=== PATIENT | male | born 1960 | race Caucasian/White ===

== ENCOUNTER 2017-03-17 03:47 | Observation (INO) | payer BC, OTHER ==
[~2017-03-17] VITALS: Ht 180.3 cm; Wt 113.0 kg
[~2017-03-17 03:47] MED LIST: AMLO-114 PO; CALC500C70 PO; LOSA1TAB38 PO; NSNN50; SIMV1POW PO
[2017-03-17] MEDS ORDERED: ONDANSETRON INJ 2 MG/ML 2 ML VIAL IV STA (03:55)
[2017-03-17] MEDS ORDERED: KETOROLAC TROMETHAMINE 30 MG/ML VIAL IV STA (03:55)
[2017-03-17] MEDS ORDERED: MoRPHine SULFATE 4 MG/ML 1 ML CARP\\VIAL IV STA (03:55)
--- NOTE | 2017-03-17 03:58 | EMERGENCY ROOM VISIT NOTE ---
History Report prepared by Gemmaibprem: Bradley Kim Under the Supervision of: Dr. Justus Soares D.O. First contact with patient: 03:49 Chief Complaint: BACK PAIN Stated Complaint: MUSCLE SPASMS IN BACK History of Present Illness The patient is a 56 year old male who presents to the Emergency Room with complaints of worsening and severe back pains that began 3 days prior to arrival. The patient's pain is worsened with movement and range of motion. He denies any recent trauma that could have caused his current symptoms. Source of History: patient Onset: 3 days [employer]ITIONER Position: back (lower) Symptom Intensity: severe Modifying Factors (Worsening): movement, other (ROM) Review of Systems See HPI for pertinent positives and negatives. A total of ten systems were reviewed and were otherwise negative. Past Medical & Surgical Medical Problems: (1) Leukocytosis Social History Smoking Status: Current Some Day Smoker Drug Use: none Marital Status: Housing Status: lives with significant other Current/Historical Medications Scheduled Amlodipine (Norvasc), 10 MG PO DAILY Fluticasone Propionate (Fluticasone Propionate), 2 SPRAYS THANH DAILY Losartan Potassium (Cozaar), 100 MG PO DAILY Metformin Hcl Er (Glucophage Er), 500 MG PO DAILY Simvastatin (Zocor), 40 MG PO QPM Allergies Coded Allergies: No Known Allergies (Verified , 03/17/17) Physical Exam Vital Signs Date Time Temp Pulse Resp B/P Pulse Ox O2 Delivery O2 Flow Rate FiO2 03/17/17 04:14 Room Air 03/17/17 04:14 Room Air 03/17/17 04:14 37.2 98 18 162/101 98 Room Air Physical Exam GENERAL: Awake, alert, well-appearing, in no distress HENT: Normocephalic, atraumatic. Oropharynx unremarkable. EYES: Normal conjunctiva. Sclera non-icteric. NECK: Supple. No nuchal rigidity. FROM. No JVD. RESPIRATORY: Clear to auscultation. CARDIAC: Regular rate, normal rhythm. Extremities warm and well perfused. Pulses equal. ABDOMEN: Soft, non-distended. No tenderness to palpation. No rebound or guarding. No masses. BACK: There is severe spasm and tenderness from T6 to the lower sacral region. RECTAL: Deferred. MUSCULOSKELETAL: Chest examination reveals no tenderness. The back is symmetrical on inspection without obvious abnormality. There is no CVA tenderness to palpation. No joint edema. LOWER EXTREMITIES: Calves are equal size bilaterally and non-tender. No edema. No discoloration. NEURO: Normal sensorium. No sensory or motor deficits noted. SKIN: No rash or jaundice noted. Medical Decision & Procedures ER Provider Diagnostic Interpretation: X ray results as stated below per my interpretation and radiologist interpretation. Other radiology results as stated below per my review and radiologist interpretation CT ABDOMEN & PELVIS: Suspect atelectasis and/or scarring lung bases. Correlate for mild infiltrate. Some lung base opacity has a somewhat wedge-shaped configuration and is pleural- based, example right lung base. Infarction can have this appearance, though exam is not diagnostic for this. Cannot exclude PE without contrast. Hiatal hernia. Findings compatible interval partial left nephrectomy. NO urolithiasis or hydronephrosis. Nonspecific perinephric infiltration. No bowel obstruction. No evidence for appendicitis. No diverticulitis or colitis appreciated. Moderate colonic stool. Stable left lower lobe nodule and other incidental findings. Radiologist: Kelby Thompson M.D. Laboratory Results 03/17/17 04:01 Red Blood Count 5.66, Mean Corpuscular Volume 88.2, Mean Corpuscular Hemoglobin 31.8, Mean Corpuscular Hemoglobin Concent 36.1, Mean Platelet Volume 9.6, Neutrophils (%) (Auto) 67.2, Lymphocytes (%) (Auto) 19.5, Monocytes (%) (Auto) 8.8, Eosinophils (%) (Auto) 3.3, Basophils (%) (Auto) 0.3, Neutrophils # (Auto) 7.01, Lymphocytes # (Auto) 2.03, Monocytes # (Auto) 0.92, Eosinophils # (Auto) 0.34, Basophils # (Auto) 0.03 03/17/17 04:01 Test 03/17/17 04:01 03/17/17 05:45 White Blood Count 10.42 K/uL (4.8-10.8) Red Blood Count 5.66 M/uL (4.7-6.1) Hemoglobin 18.0 g/dL (14.0-18.0) Hematocrit 49.9 % (42-52) Mean Corpuscular Volume 88.2 fL (80-100) Mean Corpuscular Hemoglobin 31.8 pg (25-34) Mean Corpuscular Hemoglobin Concent 36.1 g/dl (32-36) Platelet Count 188 K/uL (130-400) Mean Platelet Volume 9.6 fL (7.4-10.4) Neutrophils (%) (Auto) 67.2 % Lymphocytes (%) (Auto) 19.5 % Monocytes (%) (Auto) 8.8 % Eosinophils (%) (Auto) 3.3 % Basophils (%) (Auto) 0.3 % Neutrophils # (Auto) 7.01 K/uL (1.4-6.5) Lymphocytes # (Auto) 2.03 K/uL (1.2-3.4) Monocytes # (Auto) 0.92 K/uL (0.11-0.59) Eosinophils # (Auto) 0.34 K/uL (0-0.5) Basophils # (Auto) 0.03 K/uL (0-0.2) RDW Standard Deviation 40.3 fL (36.4-46.3) RDW Coefficient of Variation 12.5 % (11.5-14.5) Immature Granulocyte % (Auto) 0.9 % Immature Granulocyte # (Auto) 0.09 K/uL (0.00-0.02) Anion Gap 7.0 mmol/L (3-11) Est Creatinine Clear Calc Drug Dose 110.7 ml/min Estimated GFR () 104.5 Estimated GFR (Non- 90.2 BUN/Creatinine Ratio 17.9 (10-20) Calcium Level 9.1 mg/dl (8.5-10.1) Total Bilirubin 0.7 mg/dl (0.2-1) Direct Bilirubin 0.2 mg/dl (0-0.2) Aspartate Amino Transf (AST/SGOT) 20 U/L (15-37) Alanine Aminotransferase (ALT/SGPT) 47 U/L (12-78) Alkaline Phosphatase 75 U/L (45-117) Total Protein 7.6 gm/dl (6.4-8.2) Albumin 4.1 gm/dl (3.4-5.0) Laboratory results reviewed by me Medications Administered Medications (Trade) Dose Ordered Sig/Vignesh Route Start Time Stop Time Status Last Admin Dose Admin Dexamethasone Sodium Phosphate (Decadron Inj) 10 mg NOW ONCE IV 03/17/17 04:00 03/17/17 04:01 DC 03/17/17 04:07 10 MG Morphine Sulfate (MoRPHine SULFATE INJ) 4 mg NOW STAT IV 03/17/17 03:55 03/17/17 03:56 DC 03/17/17 04:07 4 MG Ondansetron HCl (Zofran Inj) 4 mg NOW STAT IV 03/17/17 03:55 03/17/17 03:56 DC 03/17/17 04:07 4 MG Ketorolac Tromethamine 30 mg 30 mg NOW STAT IV 03/17/17 03:55 03/17/17 03:56 DC 03/17/17 04:07 30 MG Sodium Chloride (Nss 1000ml) 1,000 ml @ 999 mls/hr Q1H1M STAT IV 03/17/17 04:09 03/17/17 05:09 DC 03/17/17 04:09 999 MLS/HR Hydromorphone HCl (Dilaudid Inj) 1 mg NOW STAT IV 03/17/17 05:31 03/17/17 05:32 DC 03/17/17 05:43 1 MG ED Course 0351: The patient was evaluated in room B6. A complete history and physical exam was performed. 0355: Ordered Toradol 30 mg IV, Zofran 4 mg IV, Morphine Sulfate 4 mg IV. 0400: Ordered Decadron 10 mg IV. 0409: Ordered Sodium Chloride 1000 mL @ 999 mL/hr IV. 0531: Ordered Dilaudid 1 mg IV. 0538: I discussed the case with Dr. Chappell Resident for Dr. Manisha CARO Hospitalist, she will evaluate the patient for further treatment. Patient's exam does not suggest cauda equina syndrome. Patient clearly has back spasms is able lift his legs there is no bowel or bladder dysfunction. I have discussed the evaluation with the patient patient's at bedside as well as the hospitalist for admission Medical Decision Differential diagnosis includes: Muscle strain, muscle sprain, contusion, muscle spasm, dehydration. Consults Time Called: 529 Consulting Physician: Dr. Chappell Resident for Dr. Manisha CARO Hospitalist Returned Call: 05 I discussed the case with Dr. Chappell Resident for Dr. Manisha CARO Hospitalist, she will evaluate the patient for further treatment. Impression Primary Impression: Intractable low back pain Scribe Attestation The scribe's documentation has been prepared under my direction and personally reviewed by me in its entirety. I confirm that the note above accurately reflects all work, treatment, procedures, and medical decision making performed by me. Departure Information Dispostion Being Evaluated By Hospitalist Referrals Filiberto Romeo M.D. (PCP) Patient Instructions My [facility]
[2017-03-17] MEDS ORDERED: DEXAMETHASONE SOD INJ 10 MG/ML VIAL IV ONE (04:00)
[2017-03-17 04:09] LABS: BASO % 0.3 %; BASO ABS # 0.03 K/uL (0-0.2); COMPLETE YES; EOS % 3.3 %; HEMATOCRIT 49.9 % (42-52); IG% 0.9 %; LYMPH % 19.5 %; LYMPH ABS # 2.03 K/uL (1.2-3.4); MEAN CELL VOLUME 88.2 fL (80-100); MEAN CORPUSCULAR HEMOGLOBIN 31.8 pg (25-34); MEAN CORPUSCULAR HGB CONC 36.1 g/dl (32-36); MEAN PLATELET VOLUME 9.6 fL (7.4-10.4); MONO % 8.8 %; NEUT % 67.2 %; PLATELET COUNT 188 K/uL (130-400); RED BLOOD COUNT 5.66 M/uL (4.7-6.1); WHITE BLOOD COUNT 10.42 K/uL (4.8-10.8)
[2017-03-17] MEDS ORDERED: SODIUM CHLORIDE 0.9% 1000ML 1,000 ML IV STA (04:09)
[2017-03-17 04:28] LABS: BUN/CREATININE RATIO 17.9 (10-20); CALCIUM 9.1 mg/dl (8.5-10.1); CREATININE 0.93 mg/dl (0.60-1.40); POTASSIUM 4.2 mmol/L (3.5-5.1)
[2017-03-17] MEDS ORDERED: SIMV40TA2 PO (04:41)
[2017-03-17] MEDS ORDERED: FLNIN/ NAE (04:41)
[2017-03-17] MEDS ORDERED: METF500T5 PO (04:41)
[2017-03-17] MEDS ORDERED: HYDROmorphone INJ 1 MG/ML SYR IV STA (05:31)
[2017-03-17 06:05] LABS: URINE APPEARANCE CLEAR (CLEAR); URINE BILIRUBIN NEG (NEG); URINE COLOR YELLOW; URINE NITRITE NEG (NEG); URINE SPECIFIC GRAVITY 1.012 (1.000-1.030); UROBILINOGEN NEG (NEG)
[2017-03-17 06:06] LABS: MANUAL MICROSCOPIC REQUIRED? NO; REVIEW REQ? NO
[2017-03-17] MEDS ORDERED: OPTIRAY 320 IV PRN (06:15)
[2017-03-17] MEDS ORDERED: ONDANSETRON INJ 2 MG/ML 2 ML VIAL IV PRN (06:15)
--- NOTE | 2017-03-17 06:41 | History and Physical ---
History & Physical Date & Time of Service: March 17, 2017 at 06:26 Chief Complaint: Muscle Spasms In Back Primary Care Physician: Filiberto Romeo M.D. History of Present Illness Source: patient, family This is a 56 yo m s/p partial left nephrectomy for RCC that is presenting to us with back spasms/ intractable back pain. The patient had originally suffered from these back spasms approx three days ago after doing yard work outside and then while sitting down he "triggered spams". It was self limiting and lasted about an hour. He has had only had "twinges" of pain since. 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 It is a "spasm like" pain and it is a 10/10 with any movement and has a 1/10 pain if he just lays on the bed. It is particularly on the right side and radiates to the left and right flank but not down the legs. He denies any numbness/ tingling/ weakness in the LE. He denies any bowel/ bladder incontinence. He had a left partial nephrectomy in Sep 2010 at [place] for RCC. A Ct scan of the abd was done and the Stat read mentioned that there was a wedge shaped configuration concerning for a pulmonary infarction Past Medical/Surgical History Medical Problems: (1) Leukocytosis Status: Chronic Family History FH: heart disease Hypertension Social History Smoking Status: Light Tobacco Smoker Smokeless Tobacco Use: No Alcohol Use: none Drug Use: none Marital Status: Housing status: lives with family Occupational Status: employed Immunizations History of Influenza Vaccine: No History of Tetanus Vaccine?: Yes History of Pneumococcal: No History of Hepatitis B Vaccine: No Multi-Drug Resistant Organisms History of MDRO: No Allergies Coded Allergies: No Known Allergies (Verified , 03/17/17) Home Medications Scheduled Amlodipine (Norvasc), 10 MG PO DAILY Baclofen (Baclofen), 10 MG PO BID Fluticasone Propionate (Fluticasone Propionate), 2 SPRAYS THANH DAILY Hydrocodone/Acetaminophen 5MG/325MG ([place] 5MG/325MG), 1 TAB PO 1030 Losartan Potassium (Cozaar), 100 MG PO DAILY Metformin Hcl Er (Glucophage Er), 500 MG PO DAILY Simvastatin (Zocor), 40 MG PO QPM Review of Systems Constitutional: No fever Eyes: No worsening of vision ENT: No hearing loss Respiratory: No cough, No dyspnea at rest, No dyspnea on exertion, No shortness of breath, No sputum, No wheezing Cardiovascular: No chest pain Abdomen: No constipation, No diarrhea, No nausea, No pain, No vomiting Musculoskeletal: + muscle pain (back pain as above), No joint pain Genitourinary - Male: No hematuria Neurologic: No balance problems, No numbness/tingling, No weakness Psychiatric: No depression symptoms Endocrine: No fatigue Integumentary: No rash Physical Exam Vital Signs Date Time Temp Pulse Resp B/P Pulse Ox O2 Delivery O2 Flow Rate FiO2 03/17/17 06:00 86 18 133/87 95 Room Air 03/17/17 04:14 Room Air 03/17/17 04:14 Room Air 03/17/17 04:14 37.2 98 18 162/101 98 Room Air General Appearance: no apparent distress Head: normocephalic, atraumatic Eyes: normal inspection ENT: normal ENT inspection Neck: supple Respiratory/Chest: normal breath sounds, no respiratory distress, no accessory muscle use Cardiovascular: regular rate, rhythm, no murmur Abdomen/GI: normal bowel sounds, non tender, soft, no organomegaly Back: normal inspection, + muscle spasm (right side), + decreased range of motion (of LE secondary to pain), + pertinent finding (negative babinski, DTR + 2 bilat, 5/5 motor intake in LE ) Extremities/Musculoskelatal: normal inspection, no calf tenderness, no pedal edema Neurologic/Psych: alert, normal mood/affect, oriented x 3 Skin: normal color, warm/dry, no rash Lymphatic: no adenopathy Diagnostics Laboratory Results Results Past 24 Hours Test 03/17/17 04:01 03/17/17 05:45 Range/Units White Blood Count 10.42 4.8-10.8 K/uL Red Blood Count 5.66 4.7-6.1 M/uL Hemoglobin 18.0 14.0-18.0 g/dL Hematocrit 49.9 42-52 % Mean Corpuscular Volume 88.2 80-100 fL Mean Corpuscular Hemoglobin 31.8 25-34 pg Mean Corpuscular Hemoglobin Concent 36.1 32-36 g/dl Platelet Count 188 130-400 K/uL Mean Platelet Volume 9.6 7.4-10.4 fL Neutrophils (%) (Auto) 67.2 % Lymphocytes (%) (Auto) 19.5 % Monocytes (%) (Auto) 8.8 % Eosinophils (%) (Auto) 3.3 % Basophils (%) (Auto) 0.3 % Neutrophils # (Auto) 7.01 1.4-6.5 K/uL Lymphocytes # (Auto) 2.03 1.2-3.4 K/uL Monocytes # (Auto) 0.92 0.11-0.59 K/uL Eosinophils # (Auto) 0.34 0-0.5 K/uL Basophils # (Auto) 0.03 0-0.2 K/uL RDW Standard Deviation 40.3 36.4-46.3 fL RDW Coefficient of Variation 12.5 11.5-14.5 % Immature Granulocyte % (Auto) 0.9 % Immature Granulocyte # (Auto) 0.09 0.00-0.02 K/uL Sodium Level 142 136-145 mmol/L Potassium Level 4.2 3.5-5.1 mmol/L Chloride Level 109 98-107 mmol/L Carbon Dioxide Level 26 21-32 mmol/L Anion Gap 7.0 3-11 mmol/L Blood Urea Nitrogen 17 7-18 mg/dl Creatinine 0.93 0.60-1.40 mg/dl Est Creatinine Clear Calc Drug Dose 110.7 ml/min Estimated GFR () 104.5 Estimated GFR (Non- 90.2 BUN/Creatinine Ratio 17.9 10-20 Random Glucose 134 70-99 mg/dl Calcium Level 9.1 8.5-10.1 mg/dl Total Bilirubin 0.7 0.2-1 mg/dl Direct Bilirubin 0.2 0-0.2 mg/dl Aspartate Amino Transf (AST/SGOT) 20 15-37 U/L Alanine Aminotransferase (ALT/SGPT) 47 12-78 U/L Alkaline Phosphatase 75 45-117 U/L Total Protein 7.6 6.4-8.2 gm/dl Albumin 4.1 3.4-5.0 gm/dl Urine Color YELLOW Urine Appearance CLEAR CLEAR Urine pH 6.0 4.5-7.5 Urine Specific [place] 1.012 1.000-1.030 Urine Protein NEG NEG Urine Glucose (UA) NEG NEG Urine Ketones NEG NEG Urine Occult Blood NEG NEG Urine Nitrite NEG NEG Urine Bilirubin NEG NEG Urine Urobilinogen NEG NEG Urine Leukocyte Esterase NEG NEG Impression Assessment and Plan This is a 56 yo m that is suffering from intractable back pain most likely secondary to back spasm. The Ct findings are concerning and require further work up for PE however considering he is s/p left partial nephrectomy will try to refrain from using IV contrast. Intractable back pain secondary to muscle spasm - baclofen 10 mg bid - dilaudid 1 mg q 2 h - MRi lumbar spine Pulmonary wedge like configuration concerning for pulmonary infarct - Lung VQ scan - Dopplers bilat LE s/p left partial nephrectomy - Will hold losartan and metformin HTN - Losartan held - cont amlodipine DMII - insulin ISS DVT Prophylaxis SCD incase procedure required, will adjust based on MRI Level of Care Med/Surg Resuscitation Status FULL RESUSCITATION VTE Prophylaxis VTE Risk Assessment Done? Y/N: Yes Risk Level: Low Given or contraindicated: SCD's Social Service Consult None Apply Note Total Time: Critical Care 30 - 74 minutes Additional Copies To Filiberto Romeo M.D. Assessment and Plan Attending Addendum: I have physically seen and examined this patient, have directed their medical care, have supervised the medical residents activities, and agree with the H&P as noted above, with the following changes: NONE
[2017-03-17] MEDS ORDERED: IV FLUIDS COMPLETED PRN (06:45)
[2017-03-17] MEDS ORDERED: DEXTROSE 50% 50 ML SYR IV PRN (07:00)
[2017-03-17] MEDS ORDERED: GLUCAGON FOR INJ 1 MG VIAL SQ PRN (07:00)
[2017-03-17] MEDS ORDERED: GLUCOSE 10 TABS/TUBE PO PRN (07:00)
[2017-03-17] MEDS ORDERED: GLUCOSE 40% GEL 15 GM TUBE PO PRN (07:00)
--- NOTE | 2017-03-17 07:37 | DIAGNOSTIC IMAGING REPORT ---
CT SCAN OF THE ABDOMEN AND PELVIS WITHOUT IV CONTRAST CLINICAL HISTORY: Back spasms. History of partial nephrectomy. COMPARISON STUDY: Abdominal CT dated 09/13/2010. Abdominal MRI dated 09/19/2010. TECHNIQUE: CT scan of the abdomen and pelvis is performed from the lung bases to the proximal femora. Images are reviewed in the axial, sagittal, and coronal planes. IV contrast was not administered for this examination as per the referring clinician. Note that the examination was performed in suboptimal fashion without oral and IV contrast. Automated dose control exposure was utilized. CT DOSE: 1584.51 mGy.cm FINDINGS: Lung bases: The heart is top normal in size and without pericardial effusion. A trace right pleural effusion is identified and there is right basilar atelectasis. No airspace consolidation is seen typical for pneumonia. A 5 mm nodule at the left lung base seen on image #50. This is unchanged from 2010 and of doubtful significance. There is a small hiatal hernia. Liver: The unenhanced liver is mildly enlarged measuring 18.6 cm in length. The liver demonstrates diffusely diminished attenuation consistent with mild hepatic steatosis. Fatty sparing is seen adjacent to gallbladder fossa. There is no intrahepatic biliary ductal dilatation. Gallbladder: Unremarkable. Spleen: Normal in size and attenuation. Pancreas: There is mild to moderate fatty atrophy of the pancreas. The unenhanced pancreas is otherwise grossly unremarkable. Adrenal glands: Unremarkable. Kidneys: The unenhanced kidneys are without hydronephrosis. There is volume loss, contour deformity, and postoperative change identified involving the lower pole of the left kidney consistent with a history of partial nephrectomy. There are no renal calculi identified. There is no evidence of contour deforming renal mass lesion. There is mild and nonspecific bilateral perinephric stranding. This is similar to the 2010 examination. A circumaortic left renal vein is incidentally noted. Abdominal vasculature: The abdominal aorta is normal in course and caliber noting mild atherosclerotic calcification. Bowel: The small bowel and colon are normal in course and caliber. There is mild to moderate colonic fecal retention. The appendix is well-visualized and normal. Peritoneum: There is no intraperitoneal free air or abdominal ascites. There is a small fat-containing umbilical hernia. Lymphadenopathy: None. Pelvic viscera: The prostate gland is mildly enlarged measuring up to 5.9 cm in transverse diameter. There is median lobe hypertrophy. The bladder is normal as imaged. Skeletal structures: No lytic or blastic lesions are seen. IMPRESSION: 1. Suboptimal examination without oral and IV contrast. 2. There are no acute infectious or inflammatory findings in the abdomen or pelvis. 3. There are postoperative changes from left-sided partial nephrectomy. 4. Trace right pleural effusion. 5. Hepatomegaly and mild hepatic steatosis. 6. Additional changes as above. Electronically signed by: Luis Finney M.D. 03/17/2017 7:36 AM Dictated Date/Time: 03/17/2017 7:29 AM
[2017-03-17 08:10] VITALS: BP 149/80; PULSE 90; TEMP 37; O2SAT 94
[2017-03-17] MEDS: INSULIN ASPART 100 UNITS/ML 3 ML PEN SC SCH ×4 (08:30→20:40)
[2017-03-17] MEDS ORDERED: BACLOFEN 10 MG TAB PO ONE (08:30)
[2017-03-17] MEDS: SODIUM CHLORIDE 0.9% 1000ML 1,000 ML IV SCH ×3 (08:39→17:06)
[2017-03-17] MEDS: HYDROmorphone INJ 1 MG/ML SYR IV PRN ×4 (08:40→20:31)
[2017-03-17 09:09] VITALS: O2SAT 94; Ht 180.3 cm; Wt 113.0 kg
--- NOTE | 2017-03-17 09:28 | DIAGNOSTIC IMAGING REPORT ---
MRI OF THE LUMBAR SPINE WITHOUT IV CONTRAST CLINICAL HISTORY: Back pain. COMPARISON STUDY: Abdominal CT dated 03/17/2017 and 09/13/2010. TECHNIQUE: MRI of the lumbar spine is performed utilizing various T1 and T2-weighted sequences in the axial and sagittal planes. IV contrast was not administered for this examination. The examination is modestly degraded by motion artifact. FINDINGS: Lumbar spine: Vertebral body height and alignment are maintained throughout the lumbar spine. Marrow signal intensity is slightly heterogeneous. The transverse and spinous processes appear intact. There is no evidence of spondylolysis. A tiny hemangioma is noted in the body of L4. Small anterior osteophytes are noted in the lower lumbar region. No destructive bony lesion is identified. Intervertebral discs: There is mild degenerative disc desiccation seen throughout the lumbar spine. Modest loss of height is seen at L4-L5. Spinal cord: The visualized spinal cord is normal in morphology and signal intensity. The conus medullaris terminates at the level of L1. The nerve roots of the cauda equina are normal in morphology. There is mild lipomatosis of the central canal. L1-L2: Unremarkable. L2-L3: Unremarkable. L3-L4: There is minimal disc bulge with annular fissure. There is congenital narrowing of the central canal at this level with a minimum AP diameter of 7.5 mm. There is no significant acquired compromise of the central canal. Mild facet arthropathy is of no consequence. The neural foramina are patent. L4-L5: There is minimal posterior disc bulge with annular fissure. In conjunction with hypertrophy of the ligamentum flavum there is minimal acquired compromise of the central canal with a minimum AP diameter of 7 mm. Central canal narrowing is largely on a congenital basis. Facet arthropathy is of no consequence. The neural foramina are patent. There is mild bilateral subarticular stenosis. There is a left-sided facet joint effusion. L5-S1: There is a small posterior disc bulge with annular fissure. The central canal is patent. Facet arthropathy causes mild right greater than left neural foraminal stenosis. There is a left-sided facet joint effusion. Sacrum: Partially imaged sacrum is normal in morphology and signal intensity. Soft tissues: The paraspinous soft tissues are within normal limits. The retroperitoneal structures are normal as imaged, incompletely assessed. These are better seen on today's abdominal CT scan. The bladder is distended. IMPRESSION: 1. No destructive bony process is identified involving the lumbar spine. 2. There is no large disc herniation, high-grade central canal stenosis, or high-grade neural foraminal stenosis. 3. 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 See above discussion for detailed level by level analysis. Dictated: 03/17/2017 7:36 AM Transcribed: 03/17/2017 9:28 AM [facility] Electronically signed by: Luis Finney M.D. 03/17/2017 9:29 AM Dictated Date/Time: 03/17/2017 7:36 AM
--- NOTE | 2017-03-17 10:36 | DIAGNOSTIC IMAGING REPORT ---
BILATERAL LOWER EXTREMITY VENOUS DOPPLER HISTORY: Leg pain. COMPARISON STUDY: None. FINDINGS: There is normal compressibility, flow, and augmentation within the bilateral lower extremity deep venous systems. IMPRESSION: No DVT within the right or left lower extremity. Electronically signed by: Harry Madison M.D. 03/17/2017 10:34 AM Dictated Date/Time: 03/17/2017 10:34 AM
[2017-03-17] MEDS: POLYETHYLENE (MIRALAX) 17 GM PACK PO SCH ×2 (11:13→20:00)
[2017-03-17] MEDS: AMLODIPINE BESYLATE 5 MG TAB PO SCH (11:13)
[2017-03-17] MEDS: FLUTICASONE PROPIONATE NA SPR 16 GM BTL NAE SCH (11:13)
[2017-03-17 15:40] VITALS: BP 136/81; PULSE 103; TEMP 37; O2SAT 93
--- NOTE | 2017-03-17 16:19 | Family Medicine Progress Note ---
Progress Note Date of Service March 17, 2017. Subjective Pt evaluation today including: conversation w/ patient, physical exam, chart review, lab review Pain: continues to complain of back pain PO Intake: good Voiding: no voiding problems 56-year-old male with a past medical history of hypertension, diabetes, left RCC status post partial nephrectomy presented to the ER with complaints of intractable back pain . He initially started to get back spasms about 3 days ago after doing some yard work . Seemed to have worsened yesterday. The pain is in the mid back slightly on the left side , rated as 10 on 10 on movement and 1/10 while laying down. Denies any numbness, tingling , weakness in lower extremities, bowel or bladder incontinence. Denies any fevers or chills, hematuria, dysuria, urinary frequency. Today back pain is somewhat better and he is able to move with much less pain. Denies any numbness or tingling in the lower extremities. Denies any chest pain, shortness of breath, palpitations, lightheadedness or dizziness Constitutional: No chills, No fever Eyes: No worsening of vision ENT: No hearing loss Respiratory: No cough, No sputum Cardiovascular: No chest pain Abdomen: No nausea, No pain, No vomiting Musculoskeletal: + muscle pain (mid to lower back ) Male : No dysuria, No hematuria, No incontinence, No urinary frequency Neurologic: No memory loss Psychiatric: No depression symptoms Heme: No abnormal bleeding/bruising Endo: No fatigue Medications Current Inpatient Medications Medications (Trade) Dose Ordered Sig/Vignesh Route Start Time Stop Time Status Last Admin Dose Admin Ioversol (Optiray 320) 100 ml UD PRN IV 03/17/17 06:15 03/21/17 06:14 Baclofen (Lioresal Tab) 10 mg BID PO 03/17/17 20:00 04/16/17 19:59 Hydromorphone HCl (Dilaudid Inj) 1 mg Q2H PRN IV 03/17/17 06:15 03/31/17 06:14 03/17/17 16:13 1 MG Ondansetron HCl (Zofran Inj) 4 mg Q6H PRN IV 03/17/17 06:15 04/16/17 06:14 Amlodipine Besylate (Norvasc Tab) 10 mg DAILY PO 03/17/17 08:09 04/16/17 08:59 03/17/17 11:13 10 MG Fluticasone Propionate (Flonase Nasal [place]) 2 sprays DAILY THANH 03/17/17 08:09 04/16/17 08:59 03/17/17 11:13 2 SPRAYS Simvastatin (Zocor Tab) 40 mg QPM PO 03/17/17 21:00 04/16/17 20:59 Miscellaneous (Iv Fluids Completed) 1 ea PRN PRN N/A 03/17/17 06:45 03/17/18 06:44 Insulin Aspart (novoLOG ASPART) SLIDING SCALE G... ACHS SC 03/17/17 08:30 04/16/17 08:29 03/17/17 12:35 2 UNITS Polyethylene 17 gm 17 gm BID PO 03/17/17 08:09 04/16/17 08:59 Sodium Chloride (Nss 1000ml) 1,000 ml @ 150 mls/hr Q6H40M IV 03/17/17 06:45 03/18/17 02:44 03/17/17 08:39 150 MLS/HR Glucose (Glucose 40% Gel) 15-30 GRAMS 15 GRAMS... UD PRN PO 03/17/17 07:00 04/16/17 06:59 Glucose (Glucose Chew Tab) 4-8 Tablets 4 Tabl... UD PRN PO 03/17/17 07:00 04/16/17 06:59 Dextrose (Dextrose 50% 50ML Syringe) 25-50ML OF 50% DW IV FOR... UD PRN IV 03/17/17 07:00 04/16/17 06:59 Glucagon (Glucagon Inj) 1 mg UD PRN SQ 03/17/17 07:00 04/16/17 06:59 Objective Vital Signs Date Time Temp Pulse Resp B/P Pulse Ox O2 Delivery O2 Flow Rate FiO2 03/17/17 15:40 37.0 103 18 136/81 93 03/17/17 09:09 94 Room Air 03/17/17 08:10 37.0 90 18 149/80 94 Room Air 03/17/17 06:46 87 18 143/93 94 Room Air 03/17/17 06:00 86 18 133/87 95 Room Air 03/17/17 04:14 Room Air 03/17/17 04:14 Room Air 03/17/17 04:14 37.2 98 18 162/101 98 Room Air Physical Exam General Appearance: WD/WN, no apparent distress Eyes: normal inspection ENT: normal ENT inspection, hearing grossly normal Neck: supple Respiratory/Chest: chest non-tender, lungs clear, normal breath sounds, no respiratory distress, no accessory muscle use Cardiovascular: regular rate, rhythm Abdomen: normal bowel sounds, non tender, soft Extremities: normal range of motion, non-tender, no pedal edema, + pertinent finding (no spinal tenderness. Some tenderness/tightness in the left lower back ) Neurologic/Psychiatric: alert, normal mood/affect, oriented x 3 Skin: normal color Laboratory Results 03/17/17 04:01 Red Blood Count 5.66, Mean Corpuscular Volume 88.2, Mean Corpuscular Hemoglobin 31.8, Mean Corpuscular Hemoglobin Concent 36.1, Mean Platelet Volume 9.6, Neutrophils (%) (Auto) 67.2, Lymphocytes (%) (Auto) 19.5, Monocytes (%) (Auto) 8.8, Eosinophils (%) (Auto) 3.3, Basophils (%) (Auto) 0.3, Neutrophils # (Auto) 7.01, Lymphocytes # (Auto) 2.03, Monocytes # (Auto) 0.92, Eosinophils # (Auto) 0.34, Basophils # (Auto) 0.03 03/17/17 04:01 Test 03/17/17 04:01 03/17/17 05:45 03/17/17 11:26 White Blood Count 10.42 K/uL (4.8-10.8) Red Blood Count 5.66 M/uL (4.7-6.1) Hemoglobin 18.0 g/dL (14.0-18.0) Hematocrit 49.9 % (42-52) Mean Corpuscular Volume 88.2 fL (80-100) Mean Corpuscular Hemoglobin 31.8 pg (25-34) Mean Corpuscular Hemoglobin Concent 36.1 g/dl (32-36) Platelet Count 188 K/uL (130-400) Mean Platelet Volume 9.6 fL (7.4-10.4) Neutrophils (%) (Auto) 67.2 % Lymphocytes (%) (Auto) 19.5 % Monocytes (%) (Auto) 8.8 % Eosinophils (%) (Auto) 3.3 % Basophils (%) (Auto) 0.3 % Neutrophils # (Auto) 7.01 K/uL (1.4-6.5) Lymphocytes # (Auto) 2.03 K/uL (1.2-3.4) Monocytes # (Auto) 0.92 K/uL (0.11-0.59) Eosinophils # (Auto) 0.34 K/uL (0-0.5) Basophils # (Auto) 0.03 K/uL (0-0.2) RDW Standard Deviation 40.3 fL (36.4-46.3) RDW Coefficient of Variation 12.5 % (11.5-14.5) Immature Granulocyte % (Auto) 0.9 % Immature Granulocyte # (Auto) 0.09 K/uL (0.00-0.02) Anion Gap 7.0 mmol/L (3-11) Est Creatinine Clear Calc Drug Dose 110.7 ml/min Estimated GFR () 104.5 Estimated GFR (Non- 90.2 BUN/Creatinine Ratio 17.9 (10-20) Calcium Level 9.1 mg/dl (8.5-10.1) Total Bilirubin 0.7 mg/dl (0.2-1) Direct Bilirubin 0.2 mg/dl (0-0.2) Aspartate Amino Transf (AST/SGOT) 20 U/L (15-37) Alanine Aminotransferase (ALT/SGPT) 47 U/L (12-78) Alkaline Phosphatase 75 U/L (45-117) Total Protein 7.6 gm/dl (6.4-8.2) Albumin 4.1 gm/dl (3.4-5.0) Hepatitis C Antibody Screen NEG (NEG) Urine Color YELLOW Urine Appearance CLEAR (CLEAR) Urine pH 6.0 (4.5-7.5) Urine Specific [place] 1.012 (1.000-1.030) Urine Protein NEG (NEG) Urine Glucose (UA) NEG (NEG) Urine Ketones NEG (NEG) Urine Occult Blood NEG (NEG) Urine Nitrite NEG (NEG) Urine Bilirubin NEG (NEG) Urine Urobilinogen NEG (NEG) Urine Leukocyte Esterase NEG (NEG) Bedside Glucose 199 mg/dl (70-99) Assessment and Plan 56-year-old male with a past medical history of hypertension, diabetes, left RCC status post partial nephrectomy presented to the ER with complaints of intractable back pain . He initially started to get back spasms about 3 days ago after doing some yard work . Seemed to have worsened yesterday. The pain is in the mid back slightly on the left side , rated as 10 on 10 on movement and 1/10 while laying down. Denies any numbness, tingling , weakness in lower extremities, bowel or bladder incontinence. Denies any fevers or chills, hematuria, dysuria, urinary frequency. Back pain likely secondary to muscle spasm: Abdominal CT without contrast- 1. Suboptimal examination without oral and IV contrast. 2. There are no acute infectious or inflammatory findings in the abdomen or pelvis. 3. There are postoperative changes from left-sided partial nephrectomy. 4. Trace right pleural effusion. 5. Hepatomegaly and mild hepatic steatosis. - Lumbar spine MRI: 1. No destructive bony process is identified involving the lumbar spine. 2. There is no large disc herniation, high-grade central canal stenosis, or high-grade neural foraminal stenosis. 3. 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 -Continue baclofen -Taper pain medication Pulmonary wedge like configuration concerning for pulmonary infarct -Venous Doppler negative - Patient is asymptomatic and hence VQ scan has been canceled HTN -Continue losartan and amlodipine Type 2 diabetes - insulin ISS DVT Prophylaxis SCD Full code Disposition: [facility] Resident Tracking Resident Involvement: Resident Care Provided Care Provided: Adult Hospital Medicine History Resident Physician Supervision Note: I was present with Dr. Dallas during the history and exam. I discussed the case with the resident and agree with the findings and plan as documented in the note. Any exceptions or clarifications are listed here. Pt seen and examined at bedside. Pain well controlled while at rest w/ baclofen and dilaudid w/ significant exacerbation with movement. Reports no saddle anesthesia, weakness, paresthesias, incontinence, abd pain, VILLAGRAN, neck pain, weight loss, night sweats. General Appearance: WD/WN, no apparent distress Respiratory: chest non-tender, lungs clear, normal breath sounds, no respiratory distress Cardiovascular: normal peripheral pulses, regular rate, rhythm, no murmur Gastrointestinal: normal bowel sounds, non tender, soft, no organomegaly Neurologic/Psychiatric: no motor/sensory deficits, alert, normal mood/affect, oriented x 3 Assessment/Plan 56 y/o male h/o HTN, DMII, h/o RCC s/p partial nephrectomy p/w intractable lower back pain Lower back pain - likely 2/2 muscle spasm - continue baclofen, taper pain medication as tolerated Abnormal CT on read - discussed w/ radiology, unlikely in asymptomatic patient, will forgo further imaging HTN - continue losartan and amlodipine DMII - ISS DVT PPX - SCD FULL CODE
[2017-03-17] MEDS: BACLOFEN 10 MG TAB PO SCH (20:30)
[2017-03-17] MEDS ORDERED: SIMVASTATIN 40 MG TAB PO SCH (21:00)
[2017-03-18] MEDS: SODIUM CHLORIDE 0.9% 1000ML 1,000 ML IV SCH (00:29)
[2017-03-18] MEDS: HYDROmorphone INJ 1 MG/ML SYR IV PRN ×3 (00:30→08:30)
[2017-03-18 00:42] VITALS: BP 134/85; PULSE 104; TEMP 37.1; O2SAT 95
[2017-03-18 07:08] LABS: HEMATOCRIT 44.7 % (42-52); MEAN CELL VOLUME 88.9 fL (80-100); MEAN CORPUSCULAR HEMOGLOBIN 31.2 pg (25-34); MEAN CORPUSCULAR HGB CONC 35.1 g/dl (32-36); MEAN PLATELET VOLUME 10.1 fL (7.4-10.4); PLATELET COUNT 196 K/uL (130-400); RED BLOOD COUNT 5.03 M/uL (4.7-6.1); WHITE BLOOD COUNT 14.75 K/uL (4.8-10.8)
[2017-03-18 07:35] LABS: BUN/CREATININE RATIO 18.5 (10-20); CALCIUM 8.5 mg/dl (8.5-10.1); CREATININE 0.79 mg/dl (0.60-1.40); POTASSIUM 4.1 mmol/L (3.5-5.1)
[2017-03-18] MEDS ORDERED: LOSARTAN POTASSIUM 50 MG TAB PO SCH (08:00)
[2017-03-18] MEDS: POLYETHYLENE (MIRALAX) 17 GM PACK PO SCH (08:00)
[2017-03-18 08:04] VITALS: BP 146/80; PULSE 97; TEMP 36; O2SAT 95
[2017-03-18] MEDS: INSULIN ASPART 100 UNITS/ML 3 ML PEN SC SCH ×2 (08:05→11:43)
[2017-03-18] MEDS: FLUTICASONE PROPIONATE NA SPR 16 GM BTL NAE SCH (08:10)
[2017-03-18] MEDS: BACLOFEN 10 MG TAB PO SCH (08:10)
[2017-03-18] MEDS: AMLODIPINE BESYLATE 5 MG TAB PO SCH (08:11)
[2017-03-18 08:28] LABS: ESTIMATED AVERAGE GLUCOSE 134 mg/dl; HA1C FLAG Normal (Normal)
--- NOTE | 2017-03-18 10:14 | Discharge Instructions ---
Discharge Instructions Date of Service March 18, 2017. Admission Reason for Admission: Intractable Back Pain Discharge Discharge Diagnosis / Problem: muscle spasm Discharge Goals Goal(s): Improve function, Increase independence Activity Recommendations Activity Limitations: per Instructions/Follow-up section Exercise/Sports Limitations: as tolerated . Instructions / Follow-Up Instructions / Follow-Up You were admitted with back pain which was thought be to secondary to muscle spasm. CT abdomen/pelvis was ordered which was negative for any acute acute infectious or inflammatory findings in the abdomen or pelvis. Back pain likely secondary to muscle spasm: - Lumbar spine MRI: 1. No destructive bony process is identified involving the lumbar spine. 2. There is no large disc herniation, high-grade central canal stenosis, or high-grade neural foraminal stenosis. 3. 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 - Continue baclofen - may use norco 1-2 tabs every 6 hours for severe pain - You will need to follow up with Physical Therapy as an outpatient HTN -Continue losartan and amlodipine Type 2 diabetes - Continue Metformin Please follow up with your PCP in about a week Follow up with Physical therapy in the next few days Current Hospital Diet Patient's current hospital diet: Diabetes Type 2 Diet, AHA Diet (Heart Healthy) Discharge Diet Recommended Diet: AHA Diet (Heart Healthy), Diabetes Type 2 Diet Pending Studies Studies pending at discharge: no Laboratory Results Hemoglobin A1c Test 03/18/17 06:10 Range/Units Estimated Average Glucose 134 mg/dl Hemoglobin A1c 6.3 H 4.5-5.6 % Medical Emergencies . Who to Call and When: Medical Emergencies: If at any time you feel your situation is an emergency, please call 911 immediately. . Non-Emergent Contact Non-Emergency issues call your: Primary Care Provider . . "Provider Documentation" section prepared by Carline Dallas. . VTE Core Measure Inpt VTE Proph given/why not?: SCD's
[2017-03-18] MEDS ORDERED: LRS10 PO (10:23)
[2017-03-18] MEDS ORDERED: HYDR-5688 PO (10:23)
[2017-03-18 10:30] VITALS: BP 134/79; PULSE 103; O2SAT 96
[2017-03-18] MEDS ORDERED: HYDROCODONE/ACETAMOPHEN 5/325MG TAB PO ONE (10:30)
[2017-03-18] MEDS ORDERED: MISC-573 (14:32)
[2017-03-18 14:40] VITALS: BP 134/79; PULSE 103; TEMP 36; O2SAT 96
--- NOTE | 2017-03-18 18:54 | Family Medicine Progress Note ---
Progress Note Date of Service March 18, 2017. Subjective Pt seen and examined at bedside. Aching lower back pain has improved to the point at which the patient can ambulate and shower. Pain well controlled on present regimen of oral medications. Tolerated PT well. Reports no sensation changes, urinary/bowel changes, weakness, neck pain, VILLAGRAN, n/v Objective Physical Exam General Appearance: WD/WN, no apparent distress Respiratory/Chest: chest non-tender, lungs clear, normal breath sounds, no respiratory distress Cardiovascular: regular rate, rhythm, no edema, no gallop, no murmur Abdomen: normal bowel sounds, non tender, soft, no organomegaly Neurologic/Psychiatric: front line leader II-XII nml as tested, no motor/sensory deficits, alert, normal mood/affect, oriented x 3 Notes: lower back pain w/ left sided palpable spasm with improvement without TTP Assessment and Plan 56 y/o male h/o HTN, DMII, h/o RCC s/p partial nephrectomy p/w intractable lower back pain Lower back pain - likely 2/2 muscle spasm - improving and presently on oral baclofen and pain medication - okay for discharge HTN - continue losartan and amlodipine DMII - resume outpatient regimen Would encourage f/u w/ PCP
--- NOTE | 2017-03-18 19:18 | Discharge Summary ---
Discharge Summary Date of Service March 18, 2017. (Carline Dallas MD) Discharge Summary Admission Date: March 17, 2017 at 06:23 Discharge Date: March 18, 2017 Discharge Disposition: Home Principal Diagnosis: muscle spasm Problems/Secondary Diagnoses: History of partial nephrectomy for renal cell cancer Immunizations: Have You Had Influenza Vaccine: No History of Tetanus Vaccine?: Yes History of Pneumococcal: No History of Hepatitis B Vaccine: No Consultations: None (Carline Dallas MD) Medication Reconciliation New Medications: Misc. Devices (Roller Walker) 1 Mis Mis EA, #1 Baclofen (Baclofen) 10 Mg Tab 10 MG PO BID, #20 TAB Hydrocodone/Acetaminophen 5MG/325MG ([place] 5MG/325MG) Tab 1 TAB PO 1030, #20 TAB PRN PAIN Continued Medications: Amlodipine (Norvasc) 10 Mg Tab 10 MG PO DAILY, TAB Fluticasone Propionate (Fluticasone Propionate) 120 Sprays/6000 Mcg [place] 2 SPRAYS THANH DAILY Losartan Potassium (Cozaar) 100 Mg Tab 100 MG PO DAILY, TAB Metformin Hcl Er (Glucophage Er) 500 Mg Tab 500 MG PO DAILY Simvastatin (Zocor) 40 Mg Tab 40 MG PO QPM, TAB Discharge Exam Doing better today. Is able to get out of the bed and took a shower. The pain is better controlled Review of Systems: Constitutional: No chills, No fever Eyes: No worsening of vision ENT: No hearing loss Respiratory: No cough, No sputum Cardiovascular: No PND, No chest pain, No orthopnea, No palpitations Abdomen: No nausea, No pain Musculoskeletal: + muscle pain (back pain) Genitourinary - Male: No dysuria, No hematuria Neurologic: No memory loss Psychiatric: No depression symptoms Endocrine: No fatigue Physical Exam: General Appearance: WD/WN, + mild distress Eyes: normal inspection ENT: normal ENT inspection, hearing grossly normal, TMs normal Neck: supple Respiratory/Chest: lungs clear, normal breath sounds, no respiratory distress, no accessory muscle use Cardiovascular: regular rate, rhythm Extremities: no pedal edema, + pertinent finding (spinal tenderness some tightening muscle on the left side. ) Neurologic/Psychiatric: alert, normal mood/affect, oriented x 3 Skin: warm/dry (Carline Dallas MD) Hospital Course This is a 56 yo m s/p partial left nephrectomy for RCC that is presenting to us with back spasms/ intractable back pain. The patient had originally suffered from these back spasms approx three days ago after doing yard work outside and then while sitting down he "triggered spams". It was self limiting and lasted about an hour. He has had only had "twinges" of pain since. Approx 3 hours [employer] the patient started to suffer from spams again however are not self limited. It is a "spasm like" pain and it is a 10/10 with any movement and has a 1/10 pain if he just lays on the bed. It is particularly on the right side and radiates to the left and right flank but not down the legs. He denies any numbness/ tingling/ weakness in the LE. He denies any bowel/ bladder incontinence. He had a left partial nephrectomy in Sep 2010 at [place] for RCC. A Ct scan of the abd was done and the Stat read mentioned that there was a wedge shaped configuration concerning for a pulmonary infarction Back pain likely secondary to muscle spasm: Abdominal CT without contrast- 1. Suboptimal examination without oral and IV contrast. 2. There are no acute infectious or inflammatory findings in the abdomen or pelvis. 3. There are postoperative changes from left-sided partial nephrectomy. 4. Trace right pleural effusion. 5. Hepatomegaly and mild hepatic steatosis. - Lumbar spine MRI: 1. No destructive bony process is identified involving the lumbar spine. 2. There is no large disc herniation, high-grade central canal stenosis, or high-grade neural foraminal stenosis. 3. 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 -Continue baclofen 10 mg twice a day -Was given Dilaudid for pain control while inpatient, discharge with [place] to be used every 6 hours as needed for severe pain -PT recommended a walker- prescription given - Prescription also given for physical therapy as an outpatient Pulmonary wedge like configuration concerning for pulmonary infarct : A Ct scan of the abd was done and the Stat read mentioned that there was a wedge shaped configuration concerning for a pulmonary infarction -Venous Doppler negative - Patient is asymptomatic and hence VQ scan had been canceled. CTA was also not performed due to concerns of compromising renal function HTN -Continue losartan and amlodipine Type 2 diabetes -Was maintained on insulin sliding scale. Discharge with metformin home dose Recommended to follow-up with PCP in about a week Recommended to schedule physical therapy Total Time Spent: Less than 30 minutes This includes examination of the patient, discharge planning, medication reconciliation, and communication with other providers. (Carline Dallas MD) Discharge Instructions Please refer to the electronic Patient Visit Report (Discharge Instructions) for additional information. (Carline Dallas MD) Follow-Up With PCP in one week. With physical therapy as scheduled (Carline Dallas MD) Additional Copies To Filiberto Romeo M.D. Resident Tracking Resident Involvement: Resident Care Provided Care Provided: [facility] (Carline Dallas MD) Assessment/Plan Resident Physician Supervision Note: I was present with Dr. Weathers during the history and exam. I discussed the case with the resident and agree with the findings and plan as documented in the note. Any exceptions or clarifications are listed here. Documented By: Kelby Aguilar For full attending note and attestation, please see accompanying note from day of discharge. In brief: Mr. Cuenca is a 56 y/o male h/o HTN, DMII, h/o RCC s/p partial nephrectomy p/w intractable lower back pain Lower back pain - likely 2/2 muscle spasm - continue baclofen, taper pain medication outpatient. PT evaluation recommended walker support and PT as outpatient for strengthening HTN - continue losartan and amlodipine DMII - resume home regimen (Kelby Aguilar MD)
== END 2017-03-18 15:18 | disposition home or self-care (01) ==
LOC: ENRESERVDT → ENRESERVTM → EDBD 03:47 → C.EDB 03:48 → C.4E 06:23
PROVIDERS: ADMIT Hospitalist; ATTEND Family Medicine
DX: M62.838 Other muscle spasm (principal); M54.5 Low back pain; I10 Essential (primary) hypertension; E11.9 Type 2 diabetes mellitus without complications; D72.829 Elevated white blood cell count, unspecified; F17.210 Nicotine dependence, cigarettes, uncomplicated; Z79.899 Other long term (current) drug therapy